=== PATIENT | female | born 1985 | race Caucasian/White ===

== ENCOUNTER 2022-12-24 19:46 | Emergency (ER) | payer OTHER ==
[~2022-12-24] VITALS: Ht 154.9 cm; Wt 72.6 kg
[2022-12-24 19:48] VITALS: BP 117/77
--- NOTE | 2022-12-24 19:48 | NUR ---
[facility] TO BED #12
--- NOTE | 2022-12-24 19:50 | NUR ---
PLACED ON BED 12, A/OX4, NOT IN DISTRESS, WITH IV LEFT AC G20, WITH SPLIN AT RIGHT FOOT, ATTACHED PT. TO MONITOR, STATED PAIN SCALE OF "4/10"
[2022-12-24] MEDS ORDERED: HYDROmorphone PFS 2 MG/ML SYR IVP ONE (21:00)
[2022-12-24] MEDS ORDERED: ONDANSETRON 4 MG/2 ML VIAL IVP ONE (21:00)
[2022-12-24] MEDS ORDERED: ETOMIDATE 20 MG/10 ML VIAL IVP ONE (21:15)
[2022-12-24] MEDS ORDERED: PROPOFOL 200 MG/20 ML VIAL IV ONE (22:15)
--- NOTE | 2022-12-24 22:41 | NUR ---
REPORTED TO ER BED 12 FOR REQUEST OF SERVICE FOR ASSISTANCE IN CONSIOUS SEDATION PROCEDURE. TIME OUT @ 22:[address] COPELAND. BMV AT BEDSIDE, PLACED PT ON 2 LPM NC WITH CAPNOGRAPHY, NO SIGNS OF RESPIRATORY DISTRESS NOTED. NO INCIDENT TO REPORT DURING PROCEDURE PT IS AWAKE AND ALERT DR AND RN AT BEDSIDE. WILL CONTINUE TO MONITOR.
[2022-12-24] MEDS ORDERED: ACET-10509 PO (22:51)
[2022-12-24] MEDS ORDERED: IBUP-2213 PO (22:51)
[2022-12-25] MEDS ORDERED: ACET-8905 PO
[2022-12-25 00:05] VITALS: BP 117/77
--- NOTE | 2022-12-25 00:05 | NUR ---
Patient discharged with v/s stable. Written and verbal after care instructions given and explained. Patient alert, oriented and verbalized understanding of instructions. Wheel Chair Assisted with steady gait. All questions addressed prior to discharge. ID band removed. Patient advised to follow up with PMD. Rx of TYLENOL EXTRA STRENGTH, IBUPROFEN given. Patient educated on indication of medication including possible reaction and side effects. Opportunity to ask questions provided and answered.
== END 2022-12-25 00:05 | disposition home or self-care (01) ==
LOC: MED 19:46
DX: S82.841A Displaced bimalleolar fracture of right lower leg, initial encounter for closed fracture (principal); S82.201A Unspecified fracture of shaft of right tibia, initial encounter for closed fracture; S82.401A Unspecified fracture of shaft of right fibula, initial encounter for closed fracture; S93.04XA Dislocation of right ankle joint, initial encounter; Z79.899 Other long term (current) drug therapy; Z79.1 Long term (current) use of non-steroidal anti-inflammatories (NSAID); W18.39XA Other fall on same level, initial encounter; Y92.89 Other specified places as the place of occurrence of the external cause; Y93.89 Activity, other specified; Y99.8 Other external cause status
CPT/HCPCS: 27810; 73590; 73600; 73610; 81025; 94770; 96374; 96375; 99285; J1170; J2405; J2704; J3490